=== PATIENT | male | born 1990 | race Two or more races ===

== ENCOUNTER 2017-12-25 17:17 | Emergency (ER) | payer BC, OTHER ==
[2017-12-25] MEDS ORDERED: METOCLOPRAMIDE HCL 10 MG TABLET PO ONE (18:42)
[2017-12-25] MEDS ORDERED: BUTALB/ACETAMINOPHEN/CAFFEINE 1 TAB EACH PO ONE (18:42)
--- NOTE | 2017-12-25 18:42 | ER Document Report ---
ED General - General Chief Complaint: Headache Stated Complaint: HEADACHE,NAUSEA Time Seen by Provider: 12/25/17 18:23 Notes: Patient is a 27-year-old male that presents to the emergency department for chief complaint of headache. Patient reports that over the past 10 days he started having photophobia, and over the weekend started having a slowly progressive headache, no acute onset. Describes as a frontal headache, with associated photophobia, denies vomiting or visual changes, he has had some nausea associated. Denies any fevers, chills, night sweats, neck stiffness, chest pain, cough, shortness of breath, numbness, tingling or weakness in any extremity. States that this is a new type of headache, no history of this in the past. Denies history of seizures as well. Past Medical History: Denies chronic medical conditions Past Surgical History: ACL repair Social History: Denies current tobacco, alcohol or drug use Family History: Reviewed and noncontributory for presenting illness Allergies: Reviewed, see documented allergy list. REVIEW OF SYSTEMS: Unless otherwise stated in this report the patient's positive and negative responses for review of systems for constitutional, eyes, ENT, cardiovascular, respiratory, gastrointestinal, neurological, genitourinary, musculoskeletal, and integumentary systems and related systems to the presenting problem are either as stated in the HPI or were not pertinent or were negative for the symptoms and/or complaints related to the presenting medical problem. PHYSICAL EXAMINATION: Vital signs reviewed, nursing noted reviewed. GENERAL: Well-appearing, well-nourished and in no acute distress. HEAD: Atraumatic, normocephalic. EYES: Eyes appear normal, extraocular movements intact, sclera anicteric, conjunctiva are normal. EOMI, PERRLA ENT: nares patent, oropharynx clear without exudates. Moist mucous membranes. NECK: Normal range of motion, supple without lymphadenopathy LUNGS: Breath sounds clear to auscultation bilaterally and equal. No wheezes rales or rhonchi. HEART: Regular rate and rhythm without murmurs ABDOMEN: Soft, nontender, normoactive bowel sounds. No rebound, guarding, or rigidity. No masses appreciated. EXTREMITIES: Nontender, good range of motion, no pitting or edema. NEUROLOGICAL: No focal neurological deficits. Moves all extremities spontaneously Motor and sensory grossly intact on exam. PSYCH: Normal mood, normal affect. SKIN: Warm, Dry, normal turgor, no rashes or lesions noted on exposed skin TRAVEL OUTSIDE OF THE [place] IN LAST 30 DAYS: No - Related Data Allergies/Adverse Reactions: No Known Allergies Allergy (Unverified 12/25/17 18:20) Past Medical History - Social History Smoking Status: Never Smoker Frequency of alcohol use: None Drug Abuse: None Family History: Reviewed & Not Pertinent Patient has suicidal ideation: No Patient has homicidal ideation: No Renal/ Medical History: Denies: Hx Peritoneal Dialysis Past Surgical History: Reports: Hx Orthopedic Surgery - L ACL Physical Exam - Vital signs Vitals: Temp Pulse Resp BP Pulse Ox 98.9 F 75 16 152/75 H 99 12/25/17 17:21 12/25/17 17:21 12/25/17 17:21 12/25/17 17:21 12/25/17 17:21 Course - Re-evaluation Re-evalutation: Patient seen and examined vital signs reviewed. Patient was evaluated and treated as appropriate for the patient's presenting symptoms and complaint, with consideration of any critical or life threatening conditions that may be associated with their obtained history and exam as noted above. Patient was treated with oral Fioricet, and Reglan, patient refused any injections, or IV therapies for his headache The patient was re-evaluated and was improved, nausea resolved, still having a headache, but it was improved Evaluation was most consistent with nonspecific headache, gradual onset, symptoms are concerning for life-threatening headache such as subarachnoid hemorrhage, as it has been going on for several days, and has had preceding symptoms including photophobia over the past week, advised the patient to get rest at home, if his symptoms worsen to return to the emergency department. Plan of care was discussed with the patient at this point, after careful consideration I feel that that patient can be discharged from the emergency department, the patient was educated treatments and reasons to return to the emergency department based on their presumed diagnosis as noted above, they were advised to followup with a primary care physician in 2-3 days. Patient was agreeable to plan of care. *Note is created using voice recognition software and may contain spelling, syntax or grammatical errors. - Vital Signs Vital signs: Temp Pulse Resp BP Pulse Ox 99.7 F 83 16 127/67 H 99 12/25/17 19:54 12/25/17 19:54 12/25/17 19:54 12/25/17 19:54 12/25/17 19:54 Discharge - Discharge Clinical Impression: Headache Qualifiers: Headache type: unspecified Headache chronicity pattern: acute headache Intractability: not intractable Qualified Code(s): R51 - Headache Condition: Stable Disposition: HOME, SELF-CARE Instructions: Headache ([facility]) Additional Instructions: Please return to the emergency department if you have any worsening, or concern of your symptoms. Please return to the emergency department if you develop chest pain, difficulty breathing, severe abdominal pain, or ongoing vomiting. Please follow-up with your primary care physician in 2-3 days and any other recommended physicians. If prescribed, take all medications as directed. If you have any questions or concerns do not hesitate to return the emergency department for evaluation. If your headache is not improved, over the course of tomorrow, please return to the emergency department to be reevaluated. Prescriptions: Butalb/Acetaminophen/Caffeine [Fioricet (50-325-40 mg) Tablet] 1 tab PO Q6HP PRN #6 tab PRN Reason: headache Ondansetron [Zofran Odt 4 mg Tablet] 1 tab PO Q8H PRN #15 tab.rapdis PRN Reason: For Nausea/Vomiting Forms: Return to Work Referrals: QUYNH INIGUEZ MD [ACTIVE STAFF] - Follow up tomorrow (primary care. ) [facility] [Provider Group] - Follow up in 3-5 days (primary care. )
[2017-12-25] MEDS ORDERED: NAPROXEN 250 MG TABLET PO ONE ×2 (19:50→19:59)
[2017-12-25 20:03] VITALS: BP 127/67
== END 2017-12-25 20:04 | disposition home or self-care (01) ==
LOC: ER 17:17
DX: R51 Headache (principal); R11.0 Nausea
CPT/HCPCS: 99284; J3490